=== PATIENT | male | born 1955 | race Caucasian/White ===

== ENCOUNTER 2016-08-04 11:24 | Emergency (ER) | payer BC ==
[~2016-08-04] VITALS: Ht 182.9 cm; Wt 152.6 kg
[~2016-08-04 11:24] MED LIST: Ceftin PO; Ecotrin PO; Humibid LA,Mucinex PO; LOPRESSOR25 MG PO; Protonix PO; Zestril,Prinivil PO; predniSONE PO
[2016-08-04] MEDS ORDERED: LO-DOSE ASPIRIN81 M2 PO (12:51)
[2016-08-04] MEDS ORDERED: TYLENOL WITH C1 EACH PO (12:58)
[2016-08-04] MEDS ORDERED: AMOXICILLIN875 MG PO (12:58)
[2016-08-04 13:19] VITALS: BP 152/92
== END 2016-08-04 13:20 | disposition home or self-care (01) ==
LOC: EME 11:24
DX: K04.7 Periapical abscess without sinus (principal); I10 Essential (primary) hypertension; Z79.82 Long term (current) use of aspirin
CPT/HCPCS: 99281; 99283